=== PATIENT | male | born 1965 | race Asian ===

== ENCOUNTER 2016-08-10 21:36 | Emergency (ER) | payer OTHER ==
[~2016-08-10] VITALS: Ht 182.9 cm; Wt 91.2 kg
[2016-08-10 22:22] LABS: POTASSIUM 3.6 mmol/L (3.6-5.2); SODIUM 134 mmol/L (136-145)
[2016-08-10 23:03] LABS: PLATELET COUNT 258 K/uL (142-355)
== END 2016-08-10 23:15 | disposition home or self-care (01) ==
LOC: ED 21:36
DX: M10.9 Gout, unspecified (principal)
CPT/HCPCS: 80053; 84550; 85027; 96372; 99283; J1885